=== PATIENT | male | born 1970 | race Caucasian/White ===

== ENCOUNTER 2023-06-04 10:51 | Emergency (ER) | payer SELFPAY ==
[~2023-06-04] VITALS: Ht 182.9 cm; Wt 76.2 kg
[2023-06-04] VITALS (9 sets, daily range): BP systolic 106–131; BP diastolic 62–81
[2023-06-04] MEDS ORDERED: KETOROLAC TROMETHAMINE 30 MG/ML SDV IM ONE (11:00)
[2023-06-04] MEDS ORDERED: DEPAKOTE ER500 MG PO (11:03)
[2023-06-04] MEDS ORDERED: NAPROXEN500 MG PO (12:36)
== END 2023-06-04 13:06 | disposition home or self-care (01) | DRG 563 ==
LOC: ED 10:51
DX: S83.91XA Sprain of unspecified site of right knee, initial encounter (principal); X50.0XXA Overexertion from strenuous movement or load, initial encounter; Y93.01 Activity, walking, marching and hiking; Y92.410 Unspecified street and highway as the place of occurrence of the external cause